=== PATIENT | female | born 1980 | race Caucasian/White ===

== ENCOUNTER 2017-12-27 12:55 | Emergency (ER) | payer MEDICAID, SELFPAY ==
[2017-12-27 12:56] VITALS: BP 115/70; PULSE 91; RESP 14; TEMP 37.4; O2SAT 97; BMI 24.0
[2017-12-27 13:01] VITALS: BP 119/65; PULSE 93; RESP 14; O2SAT 97
--- NOTE | 2017-12-27 14:03 | RAD_ITS ---
STUDY: X-RAY CHEST REASON FOR EXAM: Female, 37 years old. Cough and fever TECHNIQUE: 2 views of the chest were obtained COMPARISON: None. FINDINGS: Mild perihilar streaky opacities. Cardiac size within normal limits. Osseous structures demonstrate no acute abnormalities. Degenerative changes in the thoracic spine. Small nodule in the right upper lobe noted which can be assessed with follow-up chest radiograph 3 months. Calcified nodule in the retrocardiac region. IMPRESSION: No evidence for lung consolidation. No pneumothorax. Small nodule in the right upper lobe which can be assessed with follow-up chest radiograph in 3-6 months Electronically Signed: Dominick Hammonds, at 15:27 EST Tel , Service support , RAD/Chest PA and Lateral
--- NOTE | 2017-12-27 14:03 | EKG12_ITS ---
Test Reason : SYNCOPE Blood Pressure : / mmHG Vent. Rate : 087 BPM Atrial Rate : 087 BPM P-R Int : 156 ms QRS Dur : 072 ms QT Int : 362 ms P-R-T Axes : 054 040 034 degrees QTc Int : 435 ms Normal sinus rhythm Low voltage QRS (limb leads) Confirmed by MADELEINE JOHNSON, AICHA ([id number]), pictures editor BRYCE BRAY ([id number]) on 12/31/2017 2:32:55 PM Referred By: CYDNEY Confirmed By:AICHA SALVADOR MD
--- NOTE | 2017-12-27 14:04 | ED.VISSUMM ---
- ER Visit Summary Date of Service: 12/27/17 Chief Complaint: Cough History of Present Illness: The patient is a 37 F with 2 days of mostly nonproductive cough, she occasionally brings up small amount of clear sputum, fevers up to 102, myalgias, headache, and chest pressure that has been constant since then. Her son was ill for 1 week with low-grade temperatures and similar illness, she did not have him evaluated but he is better now. She went to urgent care thinking she has influenza, however while waiting there and sitting, she began to feel little lightheaded, she got up to tell them and it got worse, she progressively got to the point where she passed out briefly. She was brought to the ER by EMS as a result. She denies any changes in her chest discomfort prior to this, states she has been drinking fluids about 2 2-L bottles of william fatou per day, and her blood sugar was 108 after she recovered, along with a blood pressure of 86, which is better now. She usually runs low. She denies any lateralizing neurologic symptoms. No dyspnea. No palpitations. Physical Examination: Well-appearing in no acute distress. Her vital signs are normal including a pulse ox of 97-100% on room air. She is not tachycardic. Her temperature is 99.3. Lungs are clear to auscultation throughout, chest nontender, heart is regular without murmur. No rashes. No meningismus. Neck is supple. No lymphadenopathy. TMs and EACs normal. Posterior oropharynx is normal. Alert and oriented ?3 and conversive. Test Results: Chest x-ray normal on my interpretation. EKG normal. Emergency Department Course and Treatment: Patient was given the rest of the EMS IV fluid bolus, 1 L. She is ambulatory without any lightheadedness afterwards and is feeling better after albuterol treatment. I do not think this was cardiac syncope. More likely related to her illness which I think clinically is influenza, the prevalence of which is very high in the community at this time. Given an initial dose of Tamiflu and will place her on a prescription, she is comfortable being discharged. Follow-up as needed. Treatment Plan: Tamiflu 75 mg twice daily ?5 days Disposition: Discharge home Impression: Orthostatic syncope Influenza-like illness This note was generated with [employer] software. It may contain incorrect words, spelling, and punctuation that were not noted in review of the chart prior to signing ED Disposition - Plan for ED Patient: Disposition: Home or Assisted Living Chief Complaint: Syncope Instructions: ED Hypotension Orthostatic, Influenza Prescriptions: Oseltamivir Phosphate [Tamiflu] 75 mg PO BID #10 cap Referrals: Gustavo Arreguin [Primary Care Provider] - 3-5 Days if not improving
--- NOTE | 2017-12-27 14:07 | ED.DCSUM_ITS ---
- ER Visit Summary Date of Service: 12/27/17 Chief Complaint: Cough History of Present Illness: The patient is a 37 F with 2 days of mostly nonproductive cough, she occasionally brings up small amount of clear sputum, fevers up to 102, myalgias, headache, and chest pressure that has been constant since then. Her son was ill for 1 week with low-grade temperatures and similar illness, she did not have him evaluated but he is better now. She went to urgent care thinking she has influenza, however while waiting there and sitting , she began to feel little lightheaded, she got up to tell them and it got worse , she progressively got to the point where she passed out briefly. She was brought to the ER by EMS as a result. She denies any changes in her chest discomfort prior to this, states she has been drinking fluids about 2 2-L bottles of william fatou per day, and her blood sugar was 108 after she recovered, along with a blood pressure of 86, which is better now. She usually runs low. She denies any lateralizing neurologic symptoms. No dyspnea. No palpitations. Physical Examination: Well-appearing in no acute distress. Her vital signs are normal including a pulse ox of 97-100% on room air. She is not tachycardic. Her temperature is 99.3. Lungs are clear to auscultation throughout, chest nontender, heart is regular without murmur. No rashes. No meningismus. Neck is supple. No lymphadenopathy. TMs and EACs normal. Posterior oropharynx is normal. Alert and oriented ?3 and conversive. Test Results: Chest x-ray normal on my interpretation. EKG normal. Emergency Department Course and Treatment: Patient was given the rest of the EMS IV fluid bolus, 1 L. She is ambulatory without any lightheadedness afterwards and is feeling better after albuterol treatment. I do not think this was cardiac syncope. More likely related to her illness which I think clinically is influenza, the prevalence of which is very high in the community at this time. Given an initial dose of Tamiflu and will place her on a prescription, she is comfortable being discharged. Follow-up as needed. Treatment Plan: Tamiflu 75 mg twice daily ?5 days Disposition: Discharge home Impression: Orthostatic syncope Influenza-like illness This note was generated with [employer] software. It may contain incorrect words, spelling, and punctuation that were not noted in review of the chart prior to signing ED Disposition - Plan for ED Patient: Disposition: Home or Assisted Living Chief Complaint: Syncope Instructions: ED Hypotension Orthostatic, Influenza Prescriptions: Oseltamivir Phosphate [Tamiflu] 75 mg PO BID #10 cap Referrals: Gustavo Arreguin [Primary Care Provider] - 3-5 Days if not improving
[2017-12-27 14:20] VITALS: PULSE 94; RESP 18
[2017-12-27] MEDS: Albuterol 2.5 MG/3 ML VIAL.NEB. INHALATION (14:20)
[2017-12-27] MEDS: Oseltamivir Phosphate 75 MG Capsule PO (14:55)
[2017-12-27 15:00] VITALS: PULSE 105; RESP 18; O2SAT 100
[2017-12-27 15:54] VITALS: BP 116/71; PULSE 108; RESP 18; TEMP 38.2; O2SAT 98
[2017-12-27 15:56] VITALS: TEMP 38.2
== END 2017-12-27 15:56 | disposition home or self-care (01) ==
PROVIDERS: Emergency Provider Emergency Medicine; Family Provider Student in an Organized Health Care Education/Training Program; PCP Student in an Organized Health Care Education/Training Program
DX: J11.1 Influenza due to unidentified influenza virus with other respiratory manifestations (principal); R55 Syncope and collapse; F41.9 Anxiety disorder, unspecified; Z79.899 Other long term (current) drug therapy
CPT/HCPCS: 71046; 93005; 94640; 99284; J7030; A4216

== ENCOUNTER → 2018-03-20 12:08 | Outpatient (CLI) | payer MEDICAID, SELFPAY ==
--- NOTE | 2018-03-20 | FLU_PTH ---
PATIENT: BUDDY FUNES LOC: [facility] U#:[id number] AGE/SX: 45/F ROOM: RE03/20/[address]: Dr. Asiya Landaverde MD : 1980 BED: DIS: SPEC #: [id number] RECD: 03/20/18 14:35 STATUS: LUISANA REAlonzo #: [id number] ALKA: 03/20/18 00:[address]: Asiya Landaverde DEPT: CYTOLOGY RECD BY: Hair Mcpherson ENTERED: 03/20/18 14:35 SP TYPE: Fluid OTHR DR: Dr. Gustavo Arreguin, DO Tissues: A - Thyroid gland, NOS B - Thyroid gland, NOS Procedures: Pap Stain (control) Special Stain Group II Surgery Specimen Level IV Cell Block Cytospin Fluid HEADER OPERATION: Ultrasound-guided fine needle aspiration left thyroid PRE-OP DIAGNOSIS: Thyroid nodules TISSUE SUBMITTED: A ? FNA left thyroid fluid for cytology, B - FNA left thyroid 6 slides DIAGNOSIS CYTOLOGY A. Left thyroid fluid for cytology, FNA (cytospin and cell block): Benign follicular cells with H?rthle cell features noted. B. Left thyroid nodule, FNA (smears): Consistent with benign follicular nodule with H?rthle cell feature. See cytology study and comment. SJ:rg 03/23/18 COMMENT B. Correlation with clinical, radiologic findings and appropriate follow up are necessary. CYTOLOGY STUDY Slides are reviewed. B. The specimen is adequate for evaluation. The specimen consists of benign follicular cells with H?rthle cell features. Significant amount of colloid is not seen. CYTOLOGY GROSS A - Received is 30 ml of red, cloudy fluid labeled with the patient's name and and designated per the requisition as left thyroid. Submitted for cytology preparation including cell block. B - Received are six smears labeled with the patient's name and designated per the requisition as left thyroid. Submitted for staining. / 03/20/18 TC:5 CPT: 00777, 80014
== END ==
PROVIDERS: Family Provider Student in an Organized Health Care Education/Training Program; PCP Student in an Organized Health Care Education/Training Program; Visit Provider Surgery
DX: E04.1 Nontoxic single thyroid nodule (principal)
CPT/HCPCS: 88108; 88305; 88313